=== PATIENT | female | born 1960 | race Two or more races ===

== ENCOUNTER 2020-05-10 09:35 | Emergency (ER) | payer SELFPAY ==
[~2020-05-10] VITALS: Ht 149.9 cm; Wt 74.8 kg
[~2020-05-10 09:35] MED LIST: ASPIR-LOW81 MG ORAL
--- NOTE | 2020-05-10 10:01 | NUR ---
ED Nurse Note:pt. came from home with c/o right hip pain radiating down since wednesday no injury, pt. is ambulatory, A/Ox4
[2020-05-10 10:02] VITALS: BP 125/83
[2020-05-10] MEDS ORDERED: Ketorolac 30mg Inj IM ONE (10:30)
[2020-05-10] MEDS ORDERED: Acetaminophen 500mg (ES) tab ORAL ONE (10:30)
[2020-05-10 11:00] VITALS: BP 129/81
[2020-05-10] MEDS ORDERED: ROBAXIN-750750 MG PO (11:01)
[2020-05-10] MEDS ORDERED: NAPROXEN250 MG ORAL (11:01)
--- NOTE | 2020-05-10 11:01 | Emergency Room Report ---
History of Present Illness General Chief Complaint: Pain Source: Patient Present Illness HPI 60-year-old female presents with left leg pain shooting from her left buttock, no bowel bladder retention/incontinence, no perineal numbness, she endorses a sharp shooting pain worsened with walking, alleviated with rest severity is moderate, intermittent no fevers no chills patient denies any dysuria patient presents for evaluation treatment Allergies: Coded Allergies: No Known Allergies (Unverified , 11/18/15) COVID-19 Screening Contact w/high risk pt: No Experienced COVID-19 symptoms?: No COVID-19 Testing performed SCR[employer] WHEEL [employer]PERATOR: No Patient History Past Medical History: see triage record Reviewed Nursing Documentation: PMH: Agreed; PSxH: Agreed Nursing Documentation-PMH Past Medical History: No Stated History Review of Systems All Other Systems: negative except mentioned in HPI Physical Exam Vital Signs Date Time Temp Pulse Resp B/P (MAP) Pulse Ox O2 Delivery O2 Flow Rate FiO2 05/10/20 09:55 98.2 90 17 125/83 (97) 99 Room Air General Appearance: well appearing, no apparent distress Head: normocephalic, atraumatic ENT: hearing grossly normal, normal voice Neck: full range of motion, supple Respiratory: no respiratory distress, speaking full sentences Musculoskeletal: other - Gait intact, left lower extremity and right lower extremity Straight leg raisenegative, 5-5 strength plantar dorsiflexion at the ankle, 5-5 strength knee flexion extension, 5-5 hip flexion extension, reflexes: Left leg 2+ patellar 2+ achilles Neurologic: alert, normal gait Psychiatric: mood/affect normal Skin: no rash Medical Decision Making Diagnostic Impression: Primary Impression: Sciatica Qualified Codes: M54.32 - Sciatica, left side ER Course The patient presents with acute onset of left shooting pain. Clinically this patient can be ruled out for serious pathology given there is a completely normal neurological exam, no history of IV drug use, and no history of bowel or bladder incontinence, no perianal numbness/tingling, no constipation or urinary retention. Once the patient's pain was adequately controlled, the patient was able to ambulate and be discharged in stable condition with anticipatory guidance provided. Patient given 30 mg of Toradol with significant improvement in the pain Last Vital Signs Date Time Temp Pulse Resp B/P (MAP) Pulse Ox O2 Delivery O2 Flow Rate FiO2 05/10/20 10:02 98.2 90 17 125/83 99 Room Air Disposition: HOME, SELF-CARE Condition: Stable Scripts Methocarbamol* (ROBAXIN-750*) 750 Mg Tablet 750 MG PO QID, #28 TAB 0 Refills Prov: Zoran Tolbert MD 05/10/20 Naproxen* (NAPROSYN*) 250 Mg Tablet 500 MG ORAL TID PRN for For Pain, #60 TAB 0 Refills Prov: Zoran Tolbert MD 05/10/20 Referrals: NOT CHOSEN IPA/,REFERRING (PCP) [facility] Patient Instructions: Sciatica, [id number] Additional Instructions: The patient was provided with discharge instructions, notified to follow-up with a primary care doctor and or specialist in the next 24-48 hours, and to return to the ED if they have worsening of their symptoms. Please note that this report is being documented using DRAGON technology. This can lead to erroneous entry secondary to incorrect interpretation by the dictating instrument. Zoran Tolbert MD May 10, 2020 11:01
[2020-05-10 11:05] VITALS: BP 125/83
--- NOTE | 2020-05-10 11:05 | NUR ---
ED Nurse Note: Pt cleared by health care Provider for discharge. DC instructions/prescription was given and explained to pt and verbalized understanding of teachings. All medical deviecs such as ID band removed. Pt is AAO x4, ambulatory and left with all personal belongings.
== END 2020-05-10 12:31 | disposition home or self-care (01) ==
LOC: EMR 09:50
DX: M54.32 Sciatica, left side (principal)
CPT/HCPCS: 96372; 99283; J1885; J8540